=== PATIENT | female | born 1980 | race African-American/Black ===

== ENCOUNTER 2021-07-03 09:25 | Emergency (ER) | payer OTHER ==
[2021-07-03] MEDS ORDERED: LACTATED RINGERS SOLUTION 1000 ML INFUS.BAG IV ONE ×2 (09:32→12:11)
[2021-07-03 09:46] VITALS: TEMP 97.8; BMI 37.1
[2021-07-03 10:15] LABS: HEMATOCRIT 33.9 % (32.4-45.2); HEMOGLOBIN 11.5 G/dL (10.7-15.3); MCH 25.5 pg (25.7-33.7); MEAN CELL VOLUME 75.1 fl (80-96); MEAN PLT VOLUME 10.2 fl (7.5-11.1); PLATELET COUNT 447.6 10^3/uL (134-434); RBC 4.52 10^6/uL (3.60-5.2); RDW 18.5 % (11.6-15.6); WHITE BLOOD COUNT 6.4 10^3/uL (4.0-10.8)
[2021-07-03 10:24] LABS: ALBUMIN 3.9 g/dl (3.4-5.0); BILIRUBIN,TOTAL 1.6 mg/dl (0.2-1); CALCIUM 10.1 mg/dl (8.5-10); CREATININE 1.1 mg/dl (0.55-1.3); TOT PROT 7.7 g/dl (6.4-8.2)
[2021-07-03 14:10] VITALS: BP 137/80; PULSE 69
== END 2021-07-03 14:25 | disposition home or self-care (01) ==
LOC: FER 09:25
DX: R53.83 Other fatigue (principal)
CPT/HCPCS: 36415; 80053; 85025; 99284-25

== ENCOUNTER 2023-01-20 04:25 | Day surgery (SDC) | payer OTHER ==
[2023-01-13 10:16] VITALS: BMI 25.9
[2023-01-20] MEDS ORDERED: PHENAZOPYRIDINE HCL 100 MG TABLET (FP) PO ONE (06:30)
[2023-01-20] MEDS ORDERED: CEFAZOLIN 2 GM in DEXTROSE 5%-WATER - 100 ML IVPB ONE (06:30)
[2023-01-20] MEDS ORDERED: GABAPENTIN 300 MG CAPSULE PO ONE (06:30)
[2023-01-20] MEDS ORDERED: ACETAMINOPHEN 1000 MG/100 ML BAG IVPB ONE (06:30)
[2023-01-20] MEDS ORDERED: ceFAZolin SODIUM 1 GM VIAL ONE (06:58)
[2023-01-20] MEDS ORDERED: HEPARIN NA (PORCINE) 5,000 UNITS/ML 1ML VIAL ONE (07:35)
[2023-01-20] MEDS ORDERED: ROCURONIUM BROMIDE 50 MG/5 ML SYRINGE ONE (07:44)
[2023-01-20] MEDS ORDERED: PROPOFOL 20 ML ONE (07:45)
[2023-01-20] MEDS ORDERED: FENTANYL CITRATE/PF 50 MCG/ML VIAL ONE ×2 (07:45→09:52)
[2023-01-20] MEDS ORDERED: TRANEXAMIC ACID 1000 MG/10 ML VIAL IVPUSH ONE (07:45)
[2023-01-20] MEDS ORDERED: ceFAZolin SODIUM 1 GM VIAL IVPB ONE (08:00)
[2023-01-20] MEDS ORDERED: BUPIVACAINE HCL/PF 0.5% (5MG/ML) 10 ML VIAL ONE (08:13)
[2023-01-20] MEDS ORDERED: GLYCOPYRROLATE 0.2 MG/1 ML VIAL ONE (09:51)
[2023-01-20] MEDS ORDERED: NEOSTIGMINE METHYLSULFATE 0.5 MG/1 ML - 10 ML MDV ONE (09:52)
[2023-01-20] MEDS ORDERED: MIDAZOLAM HCL 2 MG/2 ML SINGLE DOSE VIAL ONE (09:52)
[2023-01-20] MEDS ORDERED: BUPIVACAINE HCL/PF 0.5% (5MG/ML) 10 ML VIAL IJ ONE (10:00)
[2023-01-20] MEDS ORDERED: ONDANSETRON 4 MG/2 ML VIAL IVPUSH PRN ×2 (10:18→10:22)
[2023-01-20] MEDS ORDERED: DOCUSATE SODIUM 100 MG CAPSULE (FP) PO PRN (10:22)
[2023-01-20] MEDS ORDERED: BISACODYL 5 MG TABLET.DR (FP) PO PRN (10:22)
[2023-01-20] MEDS ORDERED: IBUPROFEN 800 MG/8 ML IJ IVPB PRN (10:22)
[2023-01-20] MEDS ORDERED: LACTATED RINGERS SOLUTION 1,000 ML IV SCH (10:30)
[2023-01-20] MEDS ORDERED: HYDROmorphone *PCA* 10MG/50ML DISP.SYRIN PCA SCH (10:30)
[2023-01-20] MEDS ORDERED: HYDROmorphone *PCA* 10MG/50ML DISP.SYRIN ONE (10:40)
[2023-01-20] MEDS: ACETAMINOPHEN 1000 MG/100 ML BAG IVPB SCH ×2 (16:12→22:09)
[2023-01-20] MEDS: CEFAZOLIN SODIUM 2 GM in DEXTROSE 5%-WATER 100 ML IVPB SCH ×2 (16:13→23:27)
[2023-01-20 16:46] VITALS: RESP 18
[2023-01-20] MEDS: SIMETHICONE 80 MG TAB.CHEW (FP) PO PRN ×2 (19:45→23:27)
[2023-01-20 20:06] LABS: HEMATOCRIT 32.7 % (32.4-45.2); HEMOGLOBIN 10.9 GM/dL (10.7-15.3); MCH 29.1 pg (25.7-33.7); MCHC 33.2 g/dl (32.0-36.0); MEAN CELL VOLUME 87.7 fl (80-96); MEAN PLT VOLUME 9.4 fl (7.5-11.1); PLATELET COUNT 226 10^3/uL (134-434); RBC 3.73 M/mm3 (3.60-5.2); RDW 16.4 % (11.6-15.6); WHITE BLOOD COUNT 9.7 K/mm3 (4.0-10.0)
[2023-01-20 20:27] LABS: POTASSIUM 4.4 mmol/L (3.5-5.1)
[2023-01-20 20:31] LABS: BLOOD UREA NITROGEN 12.3 mg/dL (7-18)
[2023-01-20 20:34] LABS: CREATININE 0.8 mg/dL (0.55-1.3)
[2023-01-20] MEDS ORDERED: ZOLPIDEM TARTRATE 5 MG TABLET PO PRN (22:38)
[2023-01-21] MEDS: ACETAMINOPHEN 1000 MG/100 ML BAG IVPB SCH ×2 (04:45→09:17)
[2023-01-21] MEDS: SIMETHICONE 80 MG TAB.CHEW (FP) PO PRN ×2 (04:46→09:38)
[2023-01-21 07:07] LABS: HEMATOCRIT 29.5 % (32.4-45.2); HEMOGLOBIN 9.6 GM/dL (10.7-15.3); MCH 29.1 pg (25.7-33.7); MCHC 32.7 g/dl (32.0-36.0); MEAN CELL VOLUME 89.1 fl (80-96); MEAN PLT VOLUME 8.9 fl (7.5-11.1); PLATELET COUNT 223 10^3/uL (134-434); RBC 3.31 M/mm3 (3.60-5.2); RDW 16.3 % (11.6-15.6)
[2023-01-21 07:26] LABS: POTASSIUM 3.4 mmol/L (3.5-5.1)
[2023-01-21 07:27] LABS: CALCIUM 8.2 mg/dL (8.5-10.1)
[2023-01-21 07:28] LABS: BLOOD UREA NITROGEN 9.7 mg/dL (7-18)
[2023-01-21 07:31] LABS: CREATININE 0.8 mg/dL (0.55-1.3)
[2023-01-21] MEDS: CEFAZOLIN SODIUM 2 GM in DEXTROSE 5%-WATER 100 ML IVPB SCH (08:00)
[2023-01-21 08:17] VITALS: TEMP 98.2
[2023-01-21] MEDS ORDERED: FLU VACCINE (FLULAVAL) PF 60 MCG/0.5 ML SYRINGE 2023-2024 IM ONE (09:49)
[2023-01-21] MEDS ORDERED: oxyCODONE HCL 5 MG TABLET PO PRN ×2 (10:00)
[2023-01-21] MEDS ORDERED: ENOXAPARIN NA (PORCINE) 40 MG/0.4 ML DISP.SYRIN SQ SCH (10:00)
[2023-01-21 10:15] VITALS: BP 134/83; PULSE 75
== END 2023-01-21 11:09 | disposition home or self-care (01) ==
LOC: JASUSAT 04:25 → J3W 13:04 → JASUSAT 01-21 11:09
PROVIDERS: ATTEND Obstetrics & Gynecology
PROC: 8E0W4CZ Robotic Assisted Procedure of Trunk Region, Percutaneous Endoscopic Approach (ICD-10-PCS; 2023-01-20)
PROC: 0UB24ZZ Excision of Bilateral Ovaries, Percutaneous Endoscopic Approach (ICD-10-PCS; 2023-01-20)
PROC: 8E0W4CZ Robotic Assisted Procedure of Trunk Region, Percutaneous Endoscopic Approach (ICD-10-PCS; 2023-01-20)
PROC: 0UT9FZL Resection of Uterus, Supracervical, Via Natural or Artificial Opening With Percutaneous Endoscopic Assistance (ICD-10-PCS; principal; 2023-01-20 07:30)
PROC: 0UB77ZZ Excision of Bilateral Fallopian Tubes, Via Natural or Artificial Opening (ICD-10-PCS; 2023-01-20 07:30)
DX: N92.0 Excessive and frequent menstruation with regular cycle (principal); D25.1 Intramural leiomyoma of uterus; N83.202 Unspecified ovarian cyst, left side; N83.201 Unspecified ovarian cyst, right side
CPT/HCPCS: 58552; 58662; S2900; 36415; 80048; 81025; 85027; 88305-TC; 88307-TC; 90686; 94760; J1644